=== PATIENT | female | born 1980 | race Caucasian/White ===

== ENCOUNTER 2017-07-20 16:40 | Observation (INO) | payer BC ==
[2017-07-20] MEDS ORDERED: SODIUM CHLORIDE 1,000 ML IV STA ×2 (18:20→20:05)
[2017-07-20] MEDS ORDERED: KETOROLAC TROMETHAMINE 30 MG/1 ML VIAL IVPUSH ONE (18:20)
[2017-07-20] MEDS ORDERED: ACETAMINOPHEN 1000 MG/100 ML VIAL (NON FORMULARY) IVPB ONE (18:20)
--- NOTE | 2017-07-20 18:20 | PDOC ---
History of Present Illness - History of Present Illness Initial Comments: 07/20/17 18:26 Patient is a 37 F, with PMHx of asthma, who presents today for flu-like symptoms. Patient states that on Saturday this week she had flu-like symptoms so she went to urgent care and tested flu positive, given tamiflu. Yesterday she took the rich-flu and experienced nausea and vomiting afterwards. She did not take the rich-flu today. She reports experiencing the following symptoms: diarrhea, chills, decreased appetite, non-productive cough, dizziness, and fever (104 temp today). She is here today because of her reaction from the tamiflu and the continued flu-like symptoms. <Nai Ellison - Last Filed: 07/20/17 19:45> <Saravanan Butler - Last Filed: 07/20/17 21:20> - General Chief Complaint: Cold Symptoms Stated Complaint: FLU WITH ASTHMA Time Seen by Provider: 07/20/17 17:17 Past History <Nai Ellison - Last Filed: 07/20/17 19:45> - Past Medical History Asthma: Yes COPD: No - Suicide/Smoking/Psychosocial Hx Smoking History: Never smoked Hx Alcohol Use: No Drug/Substance Use Hx: No Substance Use Type: None <Saravanan Butler - Last Filed: 07/20/17 21:20> - Past Medical History Allergies/Adverse Reactions: Allergies Allergy/AdvReac Type Severity Reaction Status Date / Time No Known Allergies Allergy Verified 07/20/17 17:50 Home Medications: Ambulatory Orders Albuterol Sulfate [Proventil HFA Inhaler -] 1 - 2 inh PO QID PRN 07/20/17 Mometasone/Formoterol [Dulera 200 Mcg/5 Mcg Inhaler] 2 inh IH BID 07/20/17 Oseltamivir Phosphate [Tamiflu] 75 mg PO BID 07/20/17 Review of Systems - Review of Systems Comments:: 07/20/17 18:26 CONSTITUTIONAL: Present: fever, chills, loss of appetite. Absent: Diaphoresis HEENT: Absent: Rhinorrhea, Nasal Congestion, Throat Pain, Throat Swelling, Difficulty Swallowing, Mouth Swelling, Ear Pain, Eye Pain, Visual Changes CARDIOVASCULAR: Absent: Chest Pain, Syncope, Palpitations, Irregular Heart Rate, Lightheadedness , Peripheral Edema RESPIRATORY: Present: non-productive cough Absent: Shortness of Breath, SOB with Exertion, Orthopnea, Wheezing, Stridor, Hemoptysis GASTROINTESTINAL: Present: nausea, vomitting, diarrhea Absent: Abdominal pain, Abdominal Distension, Constipation, Melena, Hematochezia GENITOURINARY: Absent: Dysuria, Frequency, Urgency, Hesitancy, Flank Pain, Genital Pain MUSCULOSKELETAL: Absent: Myalgia, Arthralgia, Joint Swelling, Back pain, Neck Pain SKIN: Absent: Rash, Itching, PalloR HEMATOLOGIC/IMMUNOLOGIC: Absent: Easy Bleeding, Easy Bruising, Lymphadenopathy, Frequent infections ENDOCRINE: Absent: Unexplained Weight Gain, Unexplained Weight Loss, Heat Intolerance, Cold Intolerance NEUROLOGIC: Absent: Headache, Focal Weakness, Paresthesias, Vertigo, Lightheadedness, Unsteady Gait, Seizure, Mental Status Changes, Incontinence PSYCHIATRIC: Absent: Anxiety, Depression <Nai Ellison - Last Filed: 07/20/17 19:45> *Physical Exam - Vital Signs Last Vital Signs Temp Pulse Resp BP Pulse Ox 101.9 F H 112 H 22 118/60 97 07/20/17 17:13 07/20/17 17:13 07/20/17 17:13 07/20/17 17:13 07/20/17 17:13 - Physical Exam Comments: 07/20/17 18:27 GENERAL: The patient is awake, alert, and fully oriented, in no acute distress. HEAD: Normal with no signs of trauma. EYES: Pupils equal, round and reactive to light, extraocular movements intact, sclera anicteric, conjunctiva clear. ENT: Ears normal, nares patent, oropharynx errythematous without exudates. Moist mucous membranes. Hoarse voice. NECK: Normal range of motion, supple without lymphadenopathy, JVD, or masses. LUNGS: No wheezes. Crackles to the right anterior chest. HEART: Regular rate and rhythm, normal S1 and S2 without murmur, rub or gallop. ABDOMEN: Soft, nontender, normoactive bowel sounds. No guarding, no rebound. No masses. EXTREMITIES: Normal range of motion, no edema. No clubbing or cyanosis. No cords , erythema, or tenderness. NEUROLOGICAL: Cranial nerves II through XII grossly intact. Normal speech, normal gait. PSYCH: Normal mood, normal affect. SKIN: Warm, Dry, normal turgor, no rashes or lesions noted. <Nai Ellison - Last Filed: 07/20/17 19:45> - Vital Signs Last Vital Signs Temp Pulse Resp BP Pulse Ox 101.9 F H 112 H 22 118/60 97 07/20/17 17:13 07/20/17 17:13 07/20/17 17:13 07/20/17 17:13 07/20/17 17:13 <Saravanan Butler - Last Filed: 07/20/17 21:20> ED Treatment Course - LABORATORY CBC & Chemistry Diagram: 07/20/17 18:50 07/20/17 18:50 <Nai Ellison - Last Filed: 07/20/17 19:45> - LABORATORY CBC & Chemistry Diagram: 07/20/17 18:50 07/20/17 18:50 <Saravanan Butler - Last Filed: 07/20/17 21:20> Medical Decision Making - Medical Decision Making 07/20/17 20:43 37-year-old female with remote history of asthma, not active, presents with 5 days of flulike symptoms. She has body aches, fever, chills, cough, and diarrhea. She was seen in urgent care and had a rapid flu test that was positive and she was started on Tamiflu on Saturday. She took her Tamiflu through yesterday. She did not take it today due to nausea. She comes in complaining of ongoing fever and body aches with cough. On examination, she has coarse breath sounds with some crackles anteriorly. There is no respiratory distress. Laboratory studies reviewed: White blood cell count is elevated to 15,000. Differential has now come back with 26% bands. Sodium is decreased to 127 and normal saline was given 2 L. Patient was given Tamiflu and Levaquin in anticipation of discharge. But given the bands, she will be admitted to observation and a lactate level will be checked. There is no indication for blood cultures given that she already received antibiotics. Chest x-ray shows gestational infiltrates consistent with atypical pneumonia. Given the increased bands and the chest x-ray showing pneumonia, patient will be admitted for observation and IV antibiotics. Lactate ordered. Laboratory Results - last 24 hr 07/20/17 07/20/17 18:50 18:50 WBC 15.1 H RBC 4.88 Hgb 14.9 Hct 42.1 MCV 86.2 MCH 30.5 MCHC 35.4 RDW 12.6 Plt Count 209 MPV 9.4 Neutrophils % No Result Required. Neutrophils % (Manual) 63.0 Band Neutrophils % 26.0 H Lymphocytes % No Result Required. Lymphocytes % (Manual) 6.0 L Monocytes % (Manual) 5 Differential Comment Few large plts Sodium 127 L Potassium 3.3 L Chloride 94 L Carbon Dioxide 24 Anion Gap 9 BUN 9 Creatinine 1.0 Creat Clearance w eGFR > 60 Random Glucose 115 H Calcium 8.2 L Total Bilirubin 0.8 AST 39 ALT 27 Alkaline Phosphatase 41 Total Protein 7.4 Albumin 3.6 <Saravanan Butler - Last Filed: 07/20/17 21:20> *DC/Admit/Observation/Transfer - Attestations Scribe Attestion: 07/20/17 18:29 Documentation prepared by Nai Ellison, acting as adjunct faculty for medical terminology for Saravanan Butler MD. <Nai Ellison - Last Filed: 07/20/17 19:45> - Discharge Dispostion Admit: Yes Decision to Admit order Date/Time: 07/20/17 20:48 admit to observation - Attestations Physician Attestion: 07/20/17 21:19 The scribe's documentation has been prepared under my direction and personally reviewed by me in its entirety. I have confirmed that the note above accurately reflects all work, treatment, procedures, and medical decision- making performed by me. <Saravanan Butler - Last Filed: 07/20/17 21:20> Diagnosis at time of Disposition: Atypical pneumonia - Discharge Dispostion Condition at time of disposition: Stable
[2017-07-20] MEDS ORDERED: ONDANSETRON 4 MG/2 ML VIAL IVPB ONE (18:36)
[2017-07-20] MEDS ORDERED: KETOROLAC TROMETHAMINE 30 MG/1 ML VIAL ONE (18:42)
[2017-07-20] MEDS ORDERED: ACETAMINOPHEN INJECTION 100 ML IVPB ONE (18:43)
[2017-07-20] MEDS ORDERED: ONDANSETRON 4 MG/2 ML VIAL ONE (18:43)
[2017-07-20 19:28] LABS: WHITE BLOOD COUNT 15.1 K/mm3 (4.0-10.8)
[2017-07-20 19:31] LABS: HEMATOCRIT 42.1 % (32.4-45.2); HEMOGLOBIN 14.9 GM/dl (10.7-15.3); MCH 30.5 pg (25.7-33.7); MCHC 35.4 g/dl (32.0-36.0); MEAN CELL VOLUME 86.2 fl (80-96); MEAN PLT VOLUME 9.4 fl (7.5-11.1); PLATELET COUNT 209 K/MM3 (134-434); RBC 4.88 M/mm3 (3.60-5.2); RDW 12.6 % (11.6-15.6)
[2017-07-20 19:36] LABS: ALBUMIN 3.6 g/dl (3.5-5.0); ALK PHOS 41 U/L (32-92); ANION GAP 9 (8-16); BILIRUBIN,TOTAL 0.8 mg/dl (0.2-1.0); BLOOD UREA NITROGEN 9 mg/dl (7-18); CALCIUM 8.2 mg/dl (8.4-10.2); CHLORIDE 94 mmol/L (98-107); CO2 24 mmol/L (22-28); GLUCOSE,RANDOM 115 mg/dl (74-106); POTASSIUM 3.3 mmol/L (3.5-5.1); SGOT/AST 39 U/L (10-42); SGPT/ALT 27 U/L (10-40); SODIUM 127 mmol/L (136-145); TOT PROT 7.4 g/dl (6.4-8.3)
[2017-07-20] MEDS ORDERED: ONDANSETRON *ODT* 4 MG TABLET SL ONE (20:04)
[2017-07-20] MEDS ORDERED: OSELTAMIVIR PHOSPHATE 75 MG CAPSULE PO ONE (20:04)
[2017-07-20] MEDS ORDERED: POTASSIUM CHLORIDE TABS 20 MEQ TABLET.ER (FP) PO ONE ×2 (20:04→20:30)
[2017-07-20] MEDS ORDERED: OSELTAMIVIR PHOSPHATE 75 MG CAPSULE ONE (20:30)
[2017-07-20] MEDS ORDERED: ONDANSETRON *ODT* 4 MG TABLET ONE (20:31)
[2017-07-20] MEDS ORDERED: ONDANSETRON 4 MG/2 ML VIAL IVPB PRN (22:58)
[2017-07-20] MEDS ORDERED: ALBUTEROL SO4 2.5/IPRATROPIUM 0.5 INH SOL 3 ML VIAL.NEB. NEB PRN (22:59)
[2017-07-20] MEDS ORDERED: IBUPROFEN 600 MG TABLET (FP) PO PRN (22:59)
--- NOTE | 2017-07-20 23:12 | HP ---
Admitting History and Physical - Admission Chief Complaint: fever, flu History of Present Illness: 37 yo f w / hx of asthma who presents to er for flu symptoms. she was diagnosed w / the flu 4 days ago and was started on tamiflu. Despite taking medication her symptoms persisted, and she reports vomiting, inability to hold foods down, and watery diarrhea "all day". She reports wheezing, intermittent prod cough ( yellow sputum), body aches, and a mild GILBERT. She denies sob, cp, dysuria, constipation, dizziness, fainting. 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 Denies toxic habits famhx- NC Pex General- in nad, alert Hent- at/nc, gabriel, neck supple, trachea midline Resp- rales to anterior chest, diffuse exp wheezing Cards- RRR, no JVD, no leg edema Psych- cooperative, no agitation Neuro- alert, no seizures, speech clear Skin- no rash, no lesions Gi- non-tender, no guarding, no rebound Musk- No back pain, normal bue/ble arom Prob list FLU ?PNA Leukocytosis hyponatremia Sirs a/p- 37 yo f w hx of asthma who presents to er for flu symptoms 1. Flu/? PNA- Started on LVQ in ER. Cont same 2. FLU- Patient report taking 4 days of Tamiflu. She Received 1 dose in ER. 3. Leukocytosis Possibly due to superimposed PNA: FU Bcx, monitor CBC, 4. Hyponatremia in setting of vomiting and diarrhea: Cont IVF, recheck BMP in AM 5. Hypokalemia: replete as needed. FU BMP in am 6. SIRS possibly related to Flu vs PNA: fever, tachycardia. FU Bcx, 7. Asthma exc: Wheezing noted on exam. Will JOSE nebs. fen IVF Dvt prophy scd, oob, hep sq Dispo- obs for ?PNA and FLU symptoms History Source: Patient Limitations to Obtaining History: No Limitations - Smoking History Smoking history: Never smoked - Alcohol/Substance Use Hx Alcohol Use: No Home Medications - Allergies Allergies/Adverse Reactions: Allergies Allergy/AdvReac Type Severity Reaction Status Date / Time No Known Allergies Allergy Verified 07/20/17 17:50 - Home Medications Home Medications: Ambulatory Orders Albuterol Sulfate [Proventil HFA Inhaler -] 1 - 2 inh PO QID PRN 07/20/17 Mometasone/Formoterol [Dulera 200 Mcg/5 Mcg Inhaler] 2 inh IH BID 07/20/17 Oseltamivir Phosphate [Tamiflu] 75 mg PO BID 07/20/17 Physical Examination Vital Signs: Vital Signs Temperature 101.9 F H 07/20/17 17:13 Pulse Rate 112 H 07/20/17 17:13 Respiratory Rate 22 07/20/17 17:13 Blood Pressure 118/60 07/20/17 17:13 O2 Sat by Pulse Oximetry (%) 97 07/20/17 17:13 Labs: CBC, BMP 07/20/17 18:50 07/20/17 18:50 Visit type - Emergency Visit Emergency Visit: Yes ED Registration Date: 07/21/17 Care time: The patient presented to the Emergency Department on the above date and was hospitalized for further evaluation of their emergent condition. - New Patient This patient is new to me today: Yes Date on this admission: 07/21/17 - Critical Care Critical Care patient: No Hospitalist Screening - Colonoscopy Questionnaire Colonoscopy Questionnaire: Colonoscopy Questionnaire - Patient: 50 - 75 years old and never had a screening colonoscopy: Unknown History of colon or rectal polyps, or CA: Unknown History of IBD, Crohn's disease or UC: Unknown History of abdominal radiation therapy as a child: Unknown - Relative: 1 with colon or rectal CA, or polyps at age 60 or younger: Unknown Colon or rectal CA diagnosed at age 45 or younger: Unknown Multiple relatives with colon or rectal CA: Unknown - Outcome: Screening Result: Negative Screen
[2017-07-21 02:04] VITALS: BMI 35.4
[2017-07-21] MEDS: HEPARIN NA (PORCINE) 5,000 UNITS/ML 1ML VIAL SQ SCH ×3 (06:03→21:48)
[2017-07-21] MEDS: SODIUM CHLORIDE 1,000 ML IV SCH ×2 (06:53→23:24)
[2017-07-21 08:44] LABS: ALBUMIN 2.8 g/dl (3.5-5.0); ALK PHOS 37 U/L (32-92); ANION GAP 6 (8-16); BILIRUBIN,TOTAL 0.6 mg/dl (0.2-1.0); BLOOD UREA NITROGEN 7 mg/dl (7-18); CALCIUM 7.2 mg/dl (8.4-10.2); CHLORIDE 104 mmol/L (98-107); CO2 21 mmol/L (22-28); GLUCOSE,RANDOM 83 mg/dl (74-106); POTASSIUM 3.2 mmol/L (3.5-5.1); SGOT/AST 35 U/L (10-42); SGPT/ALT 23 U/L (10-40); SODIUM 131 mmol/L (136-145)
[2017-07-21 08:51] LABS: CREATININE 0.8 mg/dl (0.6-1.3)
[2017-07-21] MEDS: ALBUTEROL SO4 2.5/IPRATROPIUM 0.5 INH SOL 3 ML VIAL.NEB. NEB SCH ×4 (09:44→20:16)
[2017-07-21] MEDS: ACETAMINOPHEN 325 MG TABLET (FP) PO PRN (09:45)
[2017-07-21] MEDS: guaiFENesin 200 MG/10 ML 10 ML UNIT-DOSE CUPS PO PRN (12:58)
--- NOTE | 2017-07-21 13:36 | PN ---
Physical Exam: SUBJECTIVE: Patient seen and examined at bedside. Feels better. Tolerated breakfast. Vomiting and diarrhea have subsided. OBJECTIVE: Vital Signs Period Temp Pulse Resp BP Sys/Zaidi Pulse Ox Last 24 Hr 98.0 F-101.9 F 93-112 18-22 94-118/57-87 96-100 GENERAL: The patient is awake, alert, and fully oriented, in no acute distress. LUNGS: RML, RLL wheezing HEART: Regular rate and rhythm, S1, S2 without murmur, rub or gallop. ABDOMEN: Soft, nontender, nondistended, normoactive bowel sounds, no guarding, no rebound EXTREMITIES: 2+ pulses, warm, well-perfused, no edema. NEUROLOGICAL: Cranial nerves II through XII grossly intact. Normal speech, gait not observed. Laboratory Results - last 24 hr 07/20/17 07/20/17 07/20/17 18:50 18:50 21:01 WBC 15.1 H RBC 4.88 Hgb 14.9 Hct 42.1 MCV 86.2 MCH 30.5 MCHC 35.4 RDW 12.6 Plt Count 209 MPV 9.4 Neutrophils % No Result Required. Neutrophils % (Manual) 63.0 Band Neutrophils % 26.0 H Lymphocytes % No Result Required. Lymphocytes % (Manual) 6.0 L Monocytes % (Manual) 5 Differential Comment Few large plts Sodium 127 L Potassium 3.3 L Chloride 94 L Carbon Dioxide 24 Anion Gap 9 BUN 9 Creatinine 1.0 Creat Clearance w eGFR > 60 Random Glucose 115 H Lactic Acid 1.4 Calcium 8.2 L Total Bilirubin 0.8 AST 39 ALT 27 Alkaline Phosphatase 41 Total Protein 7.4 Albumin 3.6 07/21/17 06:30 WBC RBC Hgb Hct MCV MCH MCHC RDW Plt Count MPV Neutrophils % Neutrophils % (Manual) Band Neutrophils % Lymphocytes % Lymphocytes % (Manual) Monocytes % (Manual) Differential Comment Sodium 131 L Potassium 3.2 L Chloride 104 D Carbon Dioxide 21 L Anion Gap 6 L BUN 7 D Creatinine 0.8 Creat Clearance w eGFR > 60 Random Glucose 83 D Lactic Acid Calcium 7.2 L Total Bilirubin 0.6 D AST 35 ALT 23 Alkaline Phosphatase 37 Total Protein 6.0 L Albumin 2.8 L D Active Medications Generic Name Dose Route Start Last Admin Trade Name Freq PRN Reason Stop Dose Admin Acetaminophen 650 mg 07/20/17 22:58 07/21/17 09:45 Tylenol - PO 650 mg Q6H PRN Administration FEVER Albuterol/Ipratropium 1 amp 07/20/17 22:59 Duoneb - NEB Q6H PRN SHORTNESS OF BREATH Albuterol/Ipratropium 1 amp 07/21/17 08:00 07/21/17 12:57 Duoneb - NEB 1 amp RQID JOSE Administration Guaifenesin 10 ml 07/20/17 23:01 07/21/17 12:58 Robitussin - PO 10 ml Q6H PRN Administration COUGH Heparin Sodium (Porcine) 5,000 unit 07/21/17 06:00 07/21/17 06:03 Heparin - SQ 5,000 unit TID JOSE Administration Levofloxacin 750 mg in 150 mls @ 100 mls/hr 07/21/17 10:00 07/21/17 09:45 Levaquin 750 Mg Premixed Ivpb - IVPB 100 mls/hr DAILY JOSE Administration Sodium Chloride 1,000 mls @ 75 mls/hr 07/20/17 23:15 07/21/17 06:53 Normal Saline - IV 75 mls/hr ASDIR JOSE Administration Ibuprofen 600 mg 07/20/17 22:59 Motrin - PO Q6H PRN PAIN LEVEL 4 - 6 Ondansetron HCl 8 mg 07/20/17 22:58 Zofran Injection IVPB Q6H PRN NAUSEA ASSESSMENT/PLAN 37 year-old female with a PMH siginificant for asthma, did not get a flu shot this year. Tested positive for influenza on 07/16 and started course of Tamiflu. Fevers of 103-104, and cough, persisted. Developed nausea, vomiting, diarrhea after starting Tamiflu. Sepsis secondary to influenza and atypical community acquired pneumonia Asthma exacerbation --T101.9, WBC 15.1 on admission --wheezing on exam --continue levofloxacin IV --duonebs scheduled and PRN --Tylenol for fever --IV fluids -- Hyponatremia, improving --IV fluids FEN Fluids: NS@75mL/hr Electrolytes: replete as indicated Nutrition: regular diet DVT prophylaxis: subq heparin Dispo: continues to require inpatient care. Full Code. Visit type - Emergency Visit Emergency Visit: Yes ED Registration Date: 07/21/17 Care time: The patient presented to the Emergency Department on the above date and was hospitalized for further evaluation of their emergent condition. - New Patient This patient is new to me today: Yes Date on this admission: 07/21/17 - Critical Care Critical Care patient: No
[2017-07-21 19:20] LABS: BASO % 0.5 % (0-2.0); EOS % 3.3 % (0-4.5); HEMATOCRIT 39.6 % (32.4-45.2); HEMOGLOBIN 13.4 GM/dl (10.7-15.3); LYMPH % 14.3 % (8-40); MEAN CELL VOLUME 88.3 fl (80-96); MEAN PLT VOLUME 8.7 fl (7.5-11.1); MONO % 7.7 % (3.8-10.2); NEUT % 74.2 % (42.8-82.8); PLATELET COUNT 151 K/MM3 (134-434); RBC 4.49 M/mm3 (3.60-5.2); RDW 12.8 % (11.6-15.6); WHITE BLOOD COUNT 9.8 K/mm3 (4.0-10.8)
[2017-07-22] MEDS: ACETAMINOPHEN 325 MG TABLET (FP) PO PRN (04:43)
[2017-07-22] MEDS: HEPARIN NA (PORCINE) 5,000 UNITS/ML 1ML VIAL SQ SCH ×3 (06:24→22:13)
--- NOTE | 2017-07-22 08:37 | PN ---
Physical Exam: SUBJECTIVE: Patient seen and examined, reports ongoing wheezing and cough OBJECTIVE: patient is a 37 year-old female with a PMH siginificant for asthma, tested positive for influenza on 07/16 and started course of Tamiflu. patient was admitted from the emergency department for acute asthma exacerbation. . Vital Signs Period Temp Pulse Resp BP Sys/Zaidi Pulse Ox Last 24 Hr 97.9 F-98.5 F 87-92 16-18 105-120/51-63 97-100 GENERAL: The patient is awake, alert, and fully oriented, in no acute distress. HEAD: Normal with no signs of trauma. EYES: PERRL, extraocular movements intact, sclera anicteric, conjunctiva clear. No ptosis. ENT: Ears normal, nares patent, oropharynx clear without exudates, moist mucous membranes. NECK: Trachea midline, full range of motion, supple. LUNGS: Breath sounds equal, bilateral inspiratory wheeze throughout, persistent cough, diminished to bases, no crackles, no accessory muscle use. HEART: Regular rate and rhythm, S1, S2 without murmur, rub or gallop. ABDOMEN: Soft, nontender, nondistended, normoactive bowel sounds, no guarding, no rebound, no hepatosplenomegaly, no masses. EXTREMITIES: 2+ pulses, warm, well-perfused, no edema. NEUROLOGICAL: Cranial nerves II through XII grossly intact. Normal speech, gait not observed. PSYCH: Normal mood, normal affect. SKIN: Warm, dry, normal turgor, no rashes or lesions noted Laboratory Results - last 24 hr CBC WBC 10.6 K/mm3 (4.0-10.8) 07/22/17 07:45 RBC 4.05 M/mm3 (3.60-5.2) 07/22/17 07:45 Hgb 12.2 GM/dl (10.7-15.3) 07/22/17 07:45 Hct 35.4 % (32.4-45.2) 07/22/17 07:45 MCV 87.5 fl (80-96) 07/22/17 07:45 MCH 30.3 pg (25.7-33.7) 07/22/17 07:45 MCHC 34.6 g/dl (32.0-36.0) 07/22/17 07:45 RDW 12.7 % (11.6-15.6) 07/22/17 07:45 Plt Count 168 K/MM3 (134-434) 07/22/17 07:45 MPV 8.8 fl (7.5-11.1) 07/22/17 07:45 Neutrophils % No Result Required. 07/22/17 07:45 Neutrophils % (Manual) 66.0 % (42.8-82.8) 07/22/17 07:45 Band Neutrophils % 7.0 % (0-10) 07/22/17 07:45 Lymphocytes % No Result Required. 07/22/17 07:45 Lymphocytes % (Manual) 18.0 % (8-40) 07/22/17 07:45 Monocytes % 7.7 % (3.8-10.2) 07/21/17 18:45 Monocytes % (Manual) 6 % (3.8-10.2) 07/22/17 07:45 Eosinophils % 3.3 % (0-4.5) 07/21/17 18:45 Eosinophils % (Manual) 2.0 % (0-4.5) 07/22/17 07:45 Basophils % 0.5 % (0-2.0) 07/21/17 18:45 Differential Comment Few large plts 07/22/17 07:45 CMP Sodium 132 mmol/L (136-145) L 07/22/17 07:45 Potassium 3.5 mmol/L (3.5-5.1) 07/22/17 07:45 Chloride 103 mmol/L (98-107) 07/22/17 07:45 Carbon Dioxide 23 mmol/L (22-28) 07/22/17 07:45 Anion Gap 6 (8-16) L 07/22/17 07:45 BUN < 6 mg/dl (7-18) L 07/22/17 07:45 Creatinine 0.8 mg/dl (0.6-1.3) 07/22/17 07:45 Creat Clearance w eGFR > 60 (>60) 07/22/17 07:45 Random Glucose 85 mg/dl (74-106) 07/22/17 07:45 Lactic Acid 1.4 mmol/L (0.0-2.0) 07/20/17 21:01 Calcium 7.7 mg/dl (8.4-10.2) L 07/22/17 07:45 Magnesium 1.8 mg/dL (1.8-2.4) 07/22/17 07:45 Total Bilirubin 0.9 mg/dl (0.2-1.0) D 07/22/17 07:45 AST 24 U/L (10-42) D 07/22/17 07:45 ALT 20 U/L (10-40) 07/22/17 07:45 Alkaline Phosphatase 36 U/L (32-92) 07/22/17 07:45 Total Protein 5.8 g/dl (6.4-8.3) L 07/22/17 07:45 Albumin 2.7 g/dl (3.5-5.0) L 07/22/17 07:45 Active Medications Generic Name Dose Route Start Last Admin Trade Name Freq PRN Reason Stop Dose Admin Acetaminophen 650 mg 07/20/17 22:58 07/22/17 04:43 Tylenol - PO 650 mg Q6H PRN Administration FEVER Albuterol/Ipratropium 1 amp 07/20/17 22:59 Duoneb - NEB Q6H PRN SHORTNESS OF BREATH Albuterol/Ipratropium 1 amp 07/21/17 08:00 07/22/17 09:00 Duoneb - NEB 1 amp RQID OJSE Administration Budesonide/Formoterol Fumarate 2 puff 07/22/17 10:00 07/22/17 09:44 Symbicort 80/4.5mcg - IH 2 puff BID JOSE Administration Guaifenesin 10 ml 07/20/17 23:01 07/21/17 12:58 Robitussin - PO 10 ml Q6H PRN Administration COUGH Heparin Sodium (Porcine) 5,000 unit 07/21/17 06:00 07/22/17 06:24 Heparin - SQ 5,000 unit TID JOSE Administration Levofloxacin 750 mg in 150 mls @ 100 mls/hr 07/21/17 10:00 07/22/17 09:44 Levaquin 750 Mg Premixed Ivpb - IVPB 100 mls/hr DAILY JOSE Administration Sodium Chloride 1,000 mls @ 75 mls/hr 07/20/17 23:15 07/21/17 23:24 Normal Saline - IV 75 mls/hr ASDIR JOSE Administration Ibuprofen 600 mg 07/20/17 22:59 Motrin - PO Q6H PRN PAIN LEVEL 4 - 6 Methylprednisolone Sodium Succinate 40 mg 07/22/17 09:00 07/22/17 09:41 Solu-Medrol - IVPUSH 40 mg Q6H-IV JOSE Administration Montelukast Sodium 10 mg 07/22/17 22:00 Singulair - PO HS JOSE Ondansetron HCl 8 mg 07/20/17 22:58 Zofran Injection IVPB Q6H PRN NAUSEA Microbiology 07/20/17 21:25 Blood - Peripheral Venous Blood Culture - Preliminary NO GROWTH OBTAINED AFTER 24 HOURS, INCUBATION TO CONTINUE FOR 4 DAYS. 07/20/17 21:40 Blood - Peripheral Venous Blood Culture - Preliminary NO GROWTH OBTAINED AFTER 24 HOURS, INCUBATION TO CONTINUE FOR 4 DAYS. IMAGING chest xray: no acute pathology ASSESSMENT/PLAN: 1) Sepsis secondary to influenza and post influenza pna - wbc wnl, pt is afebrile - conitinue levaquin 750mg daily - blood cultures negative to date 2) pulm Asthma exacerbation - wheezing noted on exam, start solumedrol 40mg q6h - start symbicort continue scheduled duonebs - keep spo2 above 92% with supplemental O2 FEN hyponatremia - secondary to hypovolemia, slowly resolving with IVF regular diet DVT prophylaxis: subq heparin Dispo: continues to require inpatient care. Full Code. Visit type - Emergency Visit Emergency Visit: Yes ED Registration Date: 07/22/17 Care time: The patient presented to the Emergency Department on the above date and was hospitalized for further evaluation of their emergent condition. - New Patient This patient is new to me today: Yes Date on this admission: 07/23/17 - Critical Care Critical Care patient: No - Discharge Referral Referred to [facility] Yes
[2017-07-22 08:49] LABS: ALBUMIN 2.7 g/dl (3.5-5.0); ALK PHOS 36 U/L (32-92); ANION GAP 6 (8-16); BILIRUBIN,TOTAL 0.9 mg/dl (0.2-1.0); CALCIUM 7.7 mg/dl (8.4-10.2); CHLORIDE 103 mmol/L (98-107); CO2 23 mmol/L (22-28); CREATININE 0.8 mg/dl (0.6-1.3); GLUCOSE,RANDOM 85 mg/dl (74-106); MAGNESIUM 1.8 mg/dL (1.8-2.4); POTASSIUM 3.5 mmol/L (3.5-5.1); SGOT/AST 24 U/L (10-42); SGPT/ALT 20 U/L (10-40); SODIUM 132 mmol/L (136-145); TOT PROT 5.8 g/dl (6.4-8.3)
[2017-07-22] MEDS: ALBUTEROL SO4 2.5/IPRATROPIUM 0.5 INH SOL 3 ML VIAL.NEB. NEB SCH ×4 (09:00→20:41)
[2017-07-22 09:20] LABS: MEAN CELL VOLUME 87.5 fl (80-96)
[2017-07-22] MEDS ORDERED: PT OWN MED DRAWER 7, Y5N ONE ×3 (09:33→22:10)
[2017-07-22 09:37] LABS: HEMATOCRIT 35.4 % (32.4-45.2); HEMOGLOBIN 12.2 GM/dl (10.7-15.3); MCH 30.3 pg (25.7-33.7); MCHC 34.6 g/dl (32.0-36.0); PLATELET COUNT 168 K/MM3 (134-434); RBC 4.05 M/mm3 (3.60-5.2); RDW 12.7 % (11.6-15.6); WHITE BLOOD COUNT 10.6 K/mm3 (4.0-10.8)
[2017-07-22 09:38] LABS: MEAN PLT VOLUME 8.8 fl (7.5-11.1)
[2017-07-22] MEDS: methylPREDNISolone NA SUCC 40 MG/1 ML VIAL IVPUSH SCH ×3 (09:41→20:42)
[2017-07-22] MEDS: BUDESONIDE/FORMETEROL FUMARATE 80/4.5 mcg INHALER IH SCH ×2 (09:44→22:13)
[2017-07-22 09:46] LABS: BLOOD UREA NITROGEN < 6 mg/dl (7-18)
[2017-07-22] MEDS ORDERED: MAGNESIUM SULF 50% (8.12 MEQ/2 ML-1 GM VIAL) IVPB ONE (10:13)
--- NOTE | 2017-07-22 10:21 | PN ---
Progress Note (short form) - Note Progress Note: PULMONARY CONSULTATION DICTATED 07/21/17 IMP ACUTE ASTHMA EXACERBATION ACUTE INFLUENZA HYPONATREMIA PLAN IV STEROIDS INHALED BRONCHODILATORS TAMIFLU IVF PEAK FLOW MONITOR JOSE FRANCISCO SHAW PFTS OUTPATIENT PT REQUIRES INPATIENT CARE DR LI Problem List - Problems (1) Asthma Code(s): J45.909 - UNSPECIFIED ASTHMA, UNCOMPLICATED (2) Hyponatremia Code(s): E87.1 - HYPO-OSMOLALITY AND HYPONATREMIA (3) Influenza Code(s): J11.1 - FLU DUE TO UNIDENTIFIED INFLUENZA VIRUS W OTH RESP MANIFEST
[2017-07-22] MEDS ORDERED: MAGNESIUM 1GM/D5W - 1 GM/100 ML IVPB IVPB ONE (11:00)
[2017-07-22] MEDS ORDERED: SODIUM CHLORIDE 0.9%/KCL 20 MEQ/1,000 ML INFUS.BAG IV SCH (13:30)
--- NOTE | 2017-07-22 20:35 | CONS ---
DATE OF CONSULTATION: 07/21/2017 REFERRING PHYSICIAN: Maida Yoon NP HISTORY OF PRESENT ILLNESS: The patient is a 37-year-old [place]kin[place] female with past medical history of asthma, nonsmoker, admitted to [facility] with complaint of increasing shortness of breath, cough, bronchospasm, and fever. Patient states that Saturday this week prior to admission, she started developing flu-like symptoms. She went to an urgent care center, had a flu test which was positive. At which time, she was given Tamiflu. The day prior to admission, she took the Tamiflu and then started developing some nausea and vomiting. Apparently, she did not take the Tamiflu on the day of presentation to the emergency room. In the ER, she also complained of diarrhea, chills, decreased p.o. intake, nonproductive cough, fever, shortness of breath, and bronchospasm. Patient presented to the emergency room with the above. In the ER, she was felt to have acute influenza as well as an asthma exacerbation secondary to influenza. At which time, she was admitted to the floor and started on inhaled bronchodilators. Patient was also noted to be hyponatremic with serum sodium of 127 on admission. 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 She is currently maintained on Dulera as well as takes 2 shots every 2 weeks, is not sure whether or not it is allergy shots or something else. She denies any recent travel. She was born in [place] and moved to the [place] 8 years ago. She has no pets at home. There is no history of occupational exposures. PAST MEDICAL HISTORY: Again includes asthma. CURRENT MEDICATIONS: Include Zofran, Symbicort, Solu-Medrol, Tylenol, Levaquin, heparin, magnesium sulfate, DuoNeb, Robitussin, Singulair, and Motrin. REVIEW OF SYSTEMS: Positive shortness of breath. Positive cough. Positive fever. No chest pain. No palpitations. No hemoptysis. No abdominal pain. Positive nausea. PHYSICAL EXAMINATION: General: The patient is a well-developed and nourished female, awake, alert. No acute distress. Vital Signs: She is currently afebrile. Blood pressure is 120/63, respiratory rate is 17, O2 saturation is 100%. HEENT: Normocephalic, atraumatic. Neck: Supple. Heart: Regular. S1, S2. Chest: Scattered bilateral wheezes. Abdomen: Soft. Bowel sounds are positive. Extremities: No signs of edema. LABORATORY DATA: WBC is 10.6, hemoglobin 12.2, hematocrit 35.4, with a platelet count of 168,000. Electrolytes: Sodium is 132, BUN less than 6, creatinine 0.8. Chest x-ray reveals there are no infiltrates and no effusions. IMPRESSION: 1. Acute asthma exacerbation secondary to acute influenza. 2. Hyponatremia. PLAN: IV steroids, inhaled bronchodilators, IV fluids. Check urine electrolytes. Monitor peak flow. PFTs as outpatient. Serum IgE level as outpatient. COLETTE LI M.D. OREN/[id number]
[2017-07-22] MEDS ORDERED: MONTELUKAST NA 10 MG TABLET PO SCH (22:00)
[2017-07-22] MEDS: guaiFENesin 200 MG/10 ML 10 ML UNIT-DOSE CUPS PO PRN (22:13)
[2017-07-23] MEDS: methylPREDNISolone NA SUCC 40 MG/1 ML VIAL IVPUSH SCH ×2 (03:13→09:33)
[2017-07-23] MEDS: HEPARIN NA (PORCINE) 5,000 UNITS/ML 1ML VIAL SQ SCH (06:35)
[2017-07-23 08:26] LABS: BASO % 0.1 % (0-2.0); HEMATOCRIT 35.4 % (32.4-45.2); HEMOGLOBIN 12.3 GM/dl (10.7-15.3); LYMPH % 11.8 % (8-40); MCH 30.5 pg (25.7-33.7); MCHC 34.8 g/dl (32.0-36.0); MEAN CELL VOLUME 87.6 fl (80-96); MEAN PLT VOLUME 9.6 fl (7.5-11.1); MONO % 9.4 % (3.8-10.2); NEUT % 78.7 % (42.8-82.8); PLATELET COUNT 194 K/MM3 (134-434); RBC 4.04 M/mm3 (3.60-5.2); RDW 12.8 % (11.6-15.6); WHITE BLOOD COUNT 11.7 K/mm3 (4.0-10.8)
[2017-07-23 08:45] LABS: ANION GAP 5 (8-16); BLOOD UREA NITROGEN 7 mg/dl (7-18); CALCIUM 8.1 mg/dl (8.4-10.2); CHLORIDE 107 mmol/L (98-107); CO2 23 mmol/L (22-28); GLUCOSE,RANDOM 168 mg/dl (74-106); MAGNESIUM 2.3 mg/dL (1.8-2.4); POTASSIUM 3.9 mmol/L (3.5-5.1); SODIUM 135 mmol/L (136-145)
[2017-07-23] MEDS: ALBUTEROL SO4 2.5/IPRATROPIUM 0.5 INH SOL 3 ML VIAL.NEB. NEB SCH ×2 (08:45→12:50)
[2017-07-23 09:07] LABS: CREATININE < 0.8 mg/dl (0.6-1.3)
[2017-07-23] MEDS: BUDESONIDE/FORMETEROL FUMARATE 80/4.5 mcg INHALER IH SCH (09:36)
[2017-07-23] MEDS ORDERED: methylPREDNISolone NA SUCC 40 MG/1 ML VIAL IVPUSH SCH (10:00)
--- NOTE | 2017-07-23 10:07 | PN ---
Progress Note, Physician History of Present Illness: pulmonary alert,much improved ,-sob,less cough - Current Medication List Current Medications: Active Medications Acetaminophen (Tylenol -) 650 mg PO Q6H PRN PRN Reason: FEVER Last Admin: 07/22/17 04:43 Dose: 650 mg Albuterol/Ipratropium (Duoneb -) 1 amp NEB Q6H PRN PRN Reason: SHORTNESS OF BREATH Albuterol/Ipratropium (Duoneb -) 1 amp NEB RQID [facility] Last Admin: 07/23/17 08:45 Dose: 1 amp Budesonide/Formoterol Fumarate (Symbicort 80/4.5mcg -) 2 puff IH BID [facility] Last Admin: 07/23/17 09:36 Dose: 2 puff Guaifenesin (Robitussin -) 10 ml PO Q6H PRN PRN Reason: COUGH Last Admin: 07/22/17 22:13 Dose: 10 ml Heparin Sodium (Porcine) (Heparin -) 5,000 unit SQ TID [facility] Last Admin: 07/23/17 06:35 Dose: 5,000 unit Levofloxacin (Levaquin 750 Mg Premixed Ivpb -) 750 mg in 150 mls @ 100 mls/hr IVPB DAILY [facility] Last Admin: 07/23/17 09:36 Dose: 100 mls/hr Potassium Chloride/Sodium Chloride (Ns+20 Meq Kcl -) 20 meq in 1,000 mls @ 75 mls/hr IV ASDIR [facility] Last Admin: 07/22/17 13:53 Dose: 75 mls/hr Ibuprofen (Motrin -) 600 mg PO Q6H PRN PRN Reason: PAIN LEVEL 4 - 6 Methylprednisolone Sodium Succinate (Solu-Medrol -) 40 mg IVPUSH Q8H-IV [facility] Last Admin: 07/23/17 09:36 Dose: 40 mg Montelukast Sodium (Singulair -) 10 mg PO HS [facility] Last Admin: 07/22/17 22:13 Dose: 10 mg Ondansetron HCl (Zofran Injection) 8 mg IVPB Q6H PRN PRN Reason: NAUSEA - Objective Vital Signs: Vital Signs Temperature 98.1 F 07/23/17 06:00 Pulse Rate 48 L 07/23/17 06:00 Respiratory Rate 18 07/23/17 06:00 Blood Pressure 119/84 07/23/17 06:00 O2 Sat by Pulse Oximetry (%) 95 07/23/17 06:07 Constitutional: Yes: Well Nourished, Calm Eyes: Yes: WNL HENT: Yes: WNL Neck: Yes: WNL Cardiovascular: Yes: Regular Rate and Rhythm, S1, S2 Respiratory: Yes: Rales (bibasilar crackles) Gastrointestinal: Yes: Normal Bowel Sounds, Soft Extremities: Yes: WNL Edema: No Labs: CBC, BMP 07/23/17 07:55 07/23/17 07:55 Problem List - Problems (1) Asthma Code(s): J45.909 - UNSPECIFIED ASTHMA, UNCOMPLICATED (2) Hyponatremia Code(s): E87.1 - HYPO-OSMOLALITY AND HYPONATREMIA (3) Influenza Code(s): J11.1 - FLU DUE TO UNIDENTIFIED INFLUENZA VIRUS W OTH RESP MANIFEST Assessment/Plan IMP ACUTE ASTHMA EXACERBATION improved ACUTE INFLUENZA HYPONATREMIA PLAN PREDNISONE TAPER OVER 7-10 DAYS INHALED BRONCHODILATORS IVF PEAK FLOW PFTS OUTPATIENT CHEST X-RAY DR LI Problem List - Problems (1) Asthma Code(s): J45.909 - UNSPECIFIED ASTHMA, UNCOMPLICATED (2) Hyponatremia Code(s): E87.1 - HYPO-OSMOLALITY AND HYPONATREMIA (3) Influenza Code(s): J11.1 - FLU DUE TO UNIDENTIFIED INFLUENZA VIRUS W OTH RESP MANIFEST
--- NOTE | 2017-07-23 11:55 | DS ---
Physical Exam: SUBJECTIVE: Patient seen and examined, reports feeling well to OBJECTIVE: Vital Signs Period Temp Pulse Resp BP Sys/Zaidi Pulse Ox Last 24 Hr 98.1 F-98.5 F 48-81 17-20 107-119/57-84 95-97 PHYSICAL EXAM GENERAL: The patient is awake, alert, and fully oriented, in no acute distress. HEAD: Normal with no signs of trauma. EYES: PERRL, extraocular movements intact, sclera anicteric, conjunctiva clear. ENT: Ears normal, nares patent, oropharynx clear without exudates, moist mucous membranes. NECK: Trachea midline, full range of motion, supple. LUNGS: Breath sounds equal, clear to auscultation bilaterally, no wheezes, no crackles, no accessory muscle use. HEART: Regular rate and rhythm, S1, S2 without murmur, rub or gallop. ABDOMEN: Soft, nontender, nondistended, normoactive bowel sounds, no guarding, no rebound, no hepatosplenomegaly, no masses. EXTREMITIES: 2+ pulses, warm, well-perfused, no edema. NEUROLOGICAL: Cranial nerves II through XII grossly intact. Normal speech, gait not observed. PSYCH: Normal mood, normal affect. SKIN: Warm, dry, normal turgor, no rashes or lesions noted. LABS Laboratory Results - last 24 hr 07/23/17 07/23/17 07:55 07:55 WBC 11.7 H RBC 4.04 Hgb 12.3 Hct 35.4 MCV 87.6 MCH 30.5 MCHC 34.8 RDW 12.8 Plt Count 194 MPV 9.6 Neutrophils % 78.7 Lymphocytes % 11.8 Monocytes % 9.4 Eosinophils % 0.0 Basophils % 0.1 Sodium 135 L Potassium 3.9 Chloride 107 Carbon Dioxide 23 Anion Gap 5 L BUN 7 Creatinine < 0.8 Random Glucose 168 H D Calcium 8.1 L Phosphorus 3.0 Magnesium 2.3 HOSPITAL COURSE: Date of Admission:07/21/17 Date of Discharge: 07/23/17 Minutes to complete discharge: 45 Discharge Summary Reason For Visit: FLU WITH ASTHMA Current Active Problems Asthma (Acute) Atypical pneumonia (Acute) Hyponatremia (Acute) Influenza (Acute) Condition: Stable - Instructions - Home Medications Comprehensive Discharge Medication List: Ambulatory Orders Albuterol Sulfate [Proventil HFA Inhaler -] 1 - 2 inh PO QID PRN 07/20/17 Mometasone/Formoterol [Dulera 200 Mcg/5 Mcg Inhaler] 2 inh IH BID 07/20/17 Oseltamivir Phosphate [Tamiflu] 75 mg PO BID 07/20/17 - Discharge Referral Referred to [facility] Yes
[2017-07-23 12:40] VITALS: BP 116/79; PULSE 60; TEMP 98.3
== END 2017-07-23 13:00 | disposition home or self-care (01) ==
LOC: FER 16:40 → UNDOADMOB 22:38 → FM/S 22:38
PROVIDERS: ADMIT Internal Medicine; ATTEND Nurse Practitioner Family
PROC: 3E03329 Introduction of Other Anti-infective into Peripheral Vein, Percutaneous Approach (ICD-10-PCS; principal; 2017-07-21)
PROC: 3E033NZ Introduction of Analgesics, Hypnotics, Sedatives into Peripheral Vein, Percutaneous Approach (ICD-10-PCS; 2017-07-21)
PROC: 3E0333Z Introduction of Anti-inflammatory into Peripheral Vein, Percutaneous Approach (ICD-10-PCS; 2017-07-21)
PROC: 3E033GC Introduction of Other Therapeutic Substance into Peripheral Vein, Percutaneous Approach (ICD-10-PCS; 2017-07-21)
PROC: 3E0337Z Introduction of Electrolytic and Water Balance Substance into Peripheral Vein, Percutaneous Approach (ICD-10-PCS; 2017-07-21)
PROC: 3E013GC Introduction of Other Therapeutic Substance into Subcutaneous Tissue, Percutaneous Approach (ICD-10-PCS; 2017-07-21)
PROC: 3E0F7GC Introduction of Other Therapeutic Substance into Respiratory Tract, Via Natural or Artificial Opening (ICD-10-PCS; 2017-07-21)
DX: A41.9 Sepsis, unspecified organism (principal); J11.1 Influenza due to unidentified influenza virus with other respiratory manifestations; J18.8 Other pneumonia, unspecified organism; J45.901 Unspecified asthma with (acute) exacerbation; E87.1 Hypo-osmolality and hyponatremia
CPT/HCPCS: 36415; 71046-TC-FY; 80048; 80053; 83605; 83735; 84100; 85025; 87040; 94010; 94150; 94640; 99283-25; G0378; J1644